=== PATIENT | female | born 1950 | race Caucasian/White ===

== ENCOUNTER 2018-04-12 21:41 | Inpatient (IN) ==
[2018-04-13] MEDS: *HR* OxyCODONE Immed Rel 5 MG TABLET PO PRN ×3 (06:37→18:01)
[2018-04-13] MEDS ORDERED: NON-FORMULARY MEDICATION 1 EACH EACH PO SCH (09:00)
[2018-04-13] MEDS: Insulin DETEMIR 100 UNIT/ML X5UNITS SQ SCH ×2 (09:17→21:01)
[2018-04-13] MEDS: XYZAL 5 MG PO SCH (09:17)
--- NOTE | 2018-04-13 17:06 | Internal Med History&Physical ---
Date of Encounter: 04/13/18 Time of Encounter: 16:20 Assessment and Plan (1) Syncope Current visit: No Status: Acute Medications were adjusted at [facility]. Will continue to monitor. Qualifiers: Syncope type: vasovagal syncope Qualified Code(s): R55 - Syncope and collapse (2) Hematuria Current visit: Yes Status: Acute UA of 04/08/2018 reviewed. There were many squamous epithelial cells suggesting contaminated specimen. Will recheck in a.m. Qualifiers: Hematuria type: unspecified type Qualified Code(s): R31.9 - Hematuria, unspecified (3) Thrombocytopenia Current visit: Yes Status: Acute Present on most labs since 2013. Possibly secondary to cirrhosis (4) Hypertension Current visit: No Status: Chronic Continue Lopressor and monitor blood pressure. Qualifiers: Hypertension type: essential hypertension Qualified Code(s): I10 - Essential (primary) hypertension (5) DMII (diabetes mellitus, type 2) Current visit: No Status: Acute Hemoglobin A1c was 13.1% on 01/10/2018. We will recheck in a.m. Continue Levemir and do Accu-Cheks with SSI. Qualifiers: Diabetes mellitus terminal clerk insulin use: unspecified terminal clerk insulin use status Diabetes mellitus complication status: without complication Qualified Code(s): E11.9 - Type 2 diabetes mellitus without complications (6) Weakness Current visit: Yes Status: Acute Continue PT and OT intervention. Internal Medicine - H&P: HPI Chief complaint: Syncope Admitted From: Hospital to Hospital Transfer Plans for Post Hospital Care: Home History of present illness: Ms. Bowles is a 67 year old right-handed female who was transferred to [facility] swing bed after a April 08 [facility] stay for syncope. She was felt to have orthostatic hypotension. Medications were adjusted. She was admitted to [facility] swing bed for ongoing care needs and rehabilitation prior to returning to home environment. She seems to be a generally reliable historian. She states she has had approximately 6 syncopal episodes in the last 6 months. She denies specific workup being done. Her neurologic history is pertinent for CVA 2013 leaving her with slight left sided weakness and slight speech impairment. Head CT does not show associated lesion. She has seen Dr. Sanchez (neurologist) and was given Aricept for possible dementia. She had GI side effects and the Aricept was discontinued. She denies seizures. Past Med Surg Social Fam HX - Past Medical History Medical history: no medical history, cancer, COPD, CVA, DVT, diabetes, hypertension Additional medical history: recurrent UTI's Psychiatric history: depression - Past Surgical History Surgical History: appendectomy, breast surgery, hysterectomy, other Additional surgical history: left partial mastectomy - Social History Smoking Status: Never smoker Smokeless Tobacco Status: No Alcohol use: none Drug use: none Internal Medicine - H&P: Meds Albuterol Sulfate [Proair Hfa] 2 puff IH Q4H PRN 04/08/18 [History] Amitriptyline HCl 100 mg PO HS 04/08/18 [History] Insulin Glargine,Hum.rec.anlog [Basaglar Kwikpen U-100] 50 unit SQ BID 04/08/18 [History] OxyCODONE Immed Rel [Roxicodone 10 MG] 10 mg PO Q4HR 04/08/18 [History] Xyzal 5 mg PO DAILY 04/08/18 [History] Metoprolol [Lopressor] 12.5 mg PO BID tablet 04/12/18 [Rx] 3 Allergy/AdvReac Type Severity Reaction Status Date / Time codeine Allergy Itching Verified 04/13/16 15:52 Penicillins [PCN] Allergy Hives Verified 04/13/16 15:52 IVP dye Allergy Itching Uncoded 04/13/16 15:52 All Systems PM: A 10-system review of systems was performed and is negative for pertinent findings except as documented above in the HPI. Review of systems: Gen.: She states her weight has decreased approximately 60 pounds in the past 18 months. This is not verified on review of past records which shows weight of 77 kg on 06/30/2015 and weight of 76.839 kg today. Cardiovascular: She has history of hypertension. She had DVT/pulmonary emboli approximately 2012 and was on Xarelto for approximately 2 years. The etiology of the DVT/PE was not determined and she has had no recurrence. She denies OK heart failure or chest pain on exertion. Respiratory: She smoked for approximately 3 months in early adulthood. She reports being diagnosed with COPD and using oxygen at home. She has a diagnosis of asthma. GI: She has a diagnosis of cirrhosis attributed to uncontrolled diabetes. She denies alcohol use. She had a sub-5 mm hepatic lesion seen on abdominal CT during her recent [facility] stay. She denies disorders of her gallbladder or exocrine pancreas. : She reports visible hematuria present for approximate 6 months. She has not reported this to her PCP and no workup has been done. She has had UTIs in the past. Neurologic: As per history of present illness Endocrine: She was diagnosed with DM 2 approximately 1990. She has hyperlipidemia but no known thyroid disease Hematology/oncology: She reports ovarian cancer 2005 was treated with curative TIFFANY/BSO. She had invasive ductal adenocarcinoma grade 1 found on breast biopsy 03/25/2014. She was given neoadjuvant chemotherapy. 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 No additional chemotherapy was given since size was less than 5 cm. She has not had further mammograms or oncology follow-up since then. Psychiatric: She has had depression the past. She is on amitriptyline. She denies other mental health diagnoses [place] skeletal: She has DJD but no known gout or other bone joint or muscle disorders. - Constitutional Vitals: Temp Pulse Resp BP Pulse Ox 98.1 F 69 16 144/83 97 04/13/18 06:24 04/13/18 06:24 04/13/18 06:24 04/13/18 06:24 04/13/18 06:24 Exam: Gen.: She is a well-developed well-nourished female resting comfortably in bed who appears in no severe distress HEENT: Head is atraumatic. There is slight flattening of the left nasolabial fold compared to the right. Eyes: EOMI. There is no scleral icterus. Mouth: Mucosa is moist. Neck: Supple and nontender. There is no thyromegaly or adenopathy noted. Heart: Regular without murmurs gallops or ectopics Lungs: No wheezes or crackles are heard. Abdomen: Soft and nontender. No masses or guarding are noted. Extremities: There is no cyanosis edema or clubbing noted. Dorsalis pedis and posterior tibial pulses are trace to 1+ palpable bilaterally. Neurologic: Mental status: She is talkative and seems to be a reliable historian. Cranial nerves: Smile is symmetric. Forehead wrinkles bilaterally. Tongue protrudes midline. EOMI. Motor: There is no pronator drift. Cerebellar: Finger to nose is intact bilaterally. Skin: Warm and dry
[2018-04-13] MEDS: Ondansetron ODT 4 MG TAB.RAPDIS SL PRN (20:31)
[2018-04-13] MEDS ORDERED: Insulin DETEMIR 100 UNIT/ML per UNIT SQ ONE (20:56)
[2018-04-13] MEDS ORDERED: *HR* Promethazine 25 MG/ML VIAL IVP PRN (21:09)
[2018-04-14 07:44] LABS: Bilirubin,Urine Negative (Negative); Blood,Urine Moderate (Negative); Clarity,Urine Cloudy (Clear); Color,Urine Yellow (Yellow); Glucose,Urine (UA) 100 mg/dL (Normal); Ketones,Urine Negative (Negative); Leukocyte Esterase,Urine Large (Negative); Nitrite,Urine Negative (Negative); Protein,Urine 30 mg/dL (Neg-Trace); Specific Gravity,Urine 1.015 (1.010-1.025); Urobilinogen,Urine Normal (Normal)
[2018-04-14] MEDS: *HR* OxyCODONE Immed Rel 5 MG TABLET PO PRN ×3 (07:54→17:39)
[2018-04-14] MEDS: Ondansetron ODT 4 MG TAB.RAPDIS SL PRN ×2 (07:55→17:39)
[2018-04-14 09:01] LABS: Squamous Epithelial Cell,Urine Few per lpf (None-Few); WBC,Urine 50-100 per hpf (0-3); Yeast,Urine Moderate per hpf (None Seen)
[2018-04-14 09:02] LABS: Bacteria,Urine Few per hpf (None-Few)
[2018-04-14 10:08] LABS: Estimated Average Glucose 329 mg/dl; Hemoglobin A1C 13.1 %
--- NOTE | 2018-04-14 10:11 | Internal Med Progress Note ---
Date of Encounter: 04/14/18 Time of Encounter: 10:00 - Assessment and plan (1) Syncope Current Visit: No Status: Acute Assessment and plan: April 14. Will check orthostatic vital signs in a.m. She reports sensation of lightheadedness on standing. Qualifiers: Syncope type: vasovagal syncope Qualified Code(s): R55 - Syncope and collapse (2) Hematuria Current Visit: Yes Status: Acute Assessment and plan: April 14. Suspect UTI. Abdominal/pelvic CT 04/08/2018 showed no significant pathology of kidneys. Will start Septra DS empirically while awaiting urine culture report. Qualifiers: Hematuria type: unspecified type Qualified Code(s): R31.9 - Hematuria, unspecified (3) Thrombocytopenia Current Visit: Yes Status: Acute Assessment and plan: April 14. Continue to monitor. (4) Hypertension Current Visit: No Status: Chronic Assessment and plan: April 14. Continue Lopressor and monitor blood pressure. Qualifiers: Hypertension type: essential hypertension Qualified Code(s): I10 - Essential (primary) hypertension (5) DMII (diabetes mellitus, type 2) Current Visit: No Status: Acute Assessment and plan: April 14. Hemoglobin A1c pending. Continue Levemir and Accu-Cheks with SSI. Qualifiers: Diabetes mellitus fpc insulin use: unspecified fpc insulin use status Diabetes mellitus complication status: without complication Qualified Code(s): E11.9 - Type 2 diabetes mellitus without complications (6) Weakness Current Visit: Yes Status: Acute Assessment and plan: April 14. Continue PT and OT intervention. - Subjective Interval history: April 14. She has no new complaints. She had nausea and vomiting last evening but it has resolved. - Constitutional Vitals: Temp Pulse Resp BP Pulse Ox 98.3 F 70 16 115/59 90 04/14/18 06:22 04/14/18 06:22 04/14/18 06:22 04/14/18 06:22 04/14/18 06:22 Exam: She is sitting in a chair at bedside resting comfortably. Her affect is bright and cheerful. I reviewed her medications and lab results. Internal Medicine: Result - Labs Labs: Urine 04/13/18 Range/Units 07:30 Urine Color Yellow (Yellow) Urine Clarity Cloudy A (Clear) Urine pH 6.0 (5.0-8.0) pH Units Ur Specific [place] 1.015 (1.010-1.025) Urine Protein 30 H (Neg-Trace) mg/dL Urine Glucose (UA) 100 H (Normal) mg/dL Consult Discharge Plan - Plan Referrals: Jarod Frederick MD [Primary Care Provider] - 1 week
[2018-04-14] MEDS: XYZAL 5 MG PO SCH (11:07)
[2018-04-14] MEDS: Sulfamethoxazole/Trimeth DS 1 EACH TABLET PO SCH ×2 (11:30→20:31)
[2018-04-14] MEDS: Insulin DETEMIR 100 UNIT/ML X5UNITS SQ SCH ×2 (11:31→20:37)
[2018-04-14] MEDS: *HR* Metformin 500 MG TABLET PO SCH (17:39)
[2018-04-14] MEDS: Lactobacillus 1 EACH CAP.SPRINK PO SCH (20:31)
[2018-04-15] MEDS: *HR* Metformin 500 MG TABLET PO SCH (08:29)
[2018-04-15] MEDS: Lactobacillus 1 EACH CAP.SPRINK PO SCH (08:29)
[2018-04-15] MEDS: *HR* OxyCODONE Immed Rel 5 MG TABLET PO PRN (08:29)
[2018-04-15] MEDS: Ondansetron ODT 4 MG TAB.RAPDIS SL PRN (08:29)
[2018-04-15] MEDS: Sulfamethoxazole/Trimeth DS 1 EACH TABLET PO SCH (08:29)
[2018-04-15] MEDS: XYZAL 5 MG PO SCH (08:40)
[2018-04-15] MEDS: Insulin DETEMIR 100 UNIT/ML X5UNITS SQ SCH (08:40)
[2018-04-15] MEDS ORDERED: XYZAL 5 MG PO SCH (09:15)
[2018-04-15 11:32] VITALS: BP 142/76
--- NOTE | 2018-04-15 12:42 | Discharge Summary ---
Orders not resulted at time of discharge: Pending orders 04/13/18 07:30 Culture,Urine [RM] Routine Date of Encounter: 04/15/18 Time of Encounter: 12:30 - Discharge Diagnosis (1) Syncope Priority: Primary Status: Acute Qualifiers: Syncope type: vasovagal syncope Qualified Code(s): R55 - Syncope and collapse (2) Hematuria Priority: Secondary Status: Acute Qualifiers: Hematuria type: unspecified type Qualified Code(s): R31.9 - Hematuria, unspecified (3) Thrombocytopenia Priority: Secondary Status: Chronic (4) Hypertension Priority: Secondary Status: Chronic Qualifiers: Hypertension type: essential hypertension Qualified Code(s): I10 - Essential (primary) hypertension (5) DMII (diabetes mellitus, type 2) Priority: Secondary Status: Chronic Qualifiers: Diabetes mellitus chcf insulin use: unspecified chcf insulin use status Diabetes mellitus complication status: without complication Qualified Code(s): E11.9 - Type 2 diabetes mellitus without complications (6) Weakness Priority: Secondary Status: Acute Hospital course: Ms. Bowles is a 67 year old right-handed female who was transferred to [facility] swing bed after a April 08 [facility] stay for syncope. She was felt to have orthostatic hypotension. Medications were adjusted. She was admitted to [facility] swing bed for ongoing care needs and rehabilitation prior to returning to home environment. Initial orders were written by the discharging physicians at [facility]. I saw her on April 13 and performed the swing bed history and physical. She had no further syncopal or near syncopal episodes. Orthostatic vital signs done on day of discharge showed blood pressure dropping from 142/76 lying to 108/62 standing. Metoprolol dose will be changed to Toprol-XL 12.5 mg daily. Urine culture was ordered but apparently not collected. She was started on Septra DS empirically and this will be continued with lactobacillus for 3 additional days at discharge. Hemoglobin A1c returned elevated at 13.1%. Levemir dose will be increased to 60 units twice a day. She will continue NovoLog sliding scale coverage at home. She had physical therapy and occupational therapy evaluation with ongoing interventions. She progressed well and on April 15 stated she wished to be discharged home. She will follow with her PCP Dr. Frederick within 1 week. Home health services will be ordered. - Time Spent with Patient Total time spent providing and/or coordinating discharge services: - Discharge Medications Prescriptions: Lactobacillus [Culturelle] 1 each PO BID #6 cap.sprink Metoprolol XL (24 HR) Succ [Toprol Xl] 12.5 mg PO DAILY #15 tab.er.24h Sulfamethoxazole/Trimeth DS [Bactrim Ds] 1 each PO BID #6 tablet Home Medications: Albuterol Sulfate [Proair Hfa] 2 puff IH Q4H PRN 04/08/18 [History] Amitriptyline HCl 100 mg PO HS 04/08/18 [History] OxyCODONE Immed Rel [Roxicodone 10 MG] 10 mg PO Q4HR 04/08/18 [History] Xyzal 5 mg PO DAILY 04/08/18 [History] Insulin Glargine,Hum.rec.anlog [Basaglar Kwikpen U-100] 60 unit SQ BID #0 [Rx] Lactobacillus [Culturelle] 1 each PO BID #6 cap.sprink 04/15/18 [Rx] Metoprolol XL (24 HR) Succ [Toprol Xl] 12.5 mg PO DAILY #15 tab.er.24h 04/15/18 [Rx] Sulfamethoxazole/Trimeth DS [Bactrim Ds] 1 each PO BID #6 tablet 04/15/18 [Rx] Allergies/Adverse Reactions: 3 Allergy/AdvReac Type Severity Reaction Status Date / Time codeine Allergy Itching Verified 04/13/16 15:52 Penicillins [PCN] Allergy Hives Verified 04/13/16 15:52 IVP dye Allergy Itching Uncoded 04/13/16 15:52 Date of admission: 04/12/18 21:50 Primary care physician: Jarod Frederick MD Consults: 04/12/18 23:01 Consult to Occupational Therapy [CONS] Routine Comment: To evaluate, develop, and implement POC Reason for Consult: To evaluate, develop, and implement POC Does patient have active BEDREST order?: No Is patient medically & hemodynamically stable?: Yes Patient assessed for mobility or mobilized this visit?: No Consult to Physical Therapy [CONS] Routine Comment: evaluate, develop, and implement POC Reason for Consult: To evaluate, develop and implement POC. Does patient have active BEDREST order?: No Is patient medically & hemodynamically stable?: Yes Patient assessed for mobility or mobilized this visit?: No Consult to [employer]ry [employer] [CONS] Routine Reason for SW Consult: discharge planning - Constitutional Vitals: Temp Pulse Resp BP Pulse Ox 98.1 F 81 16 142/76 95 04/15/18 06:00 04/15/18 09:00 04/15/18 06:00 04/15/18 09:00 04/15/18 06:00 - Patient Status Disposition: Home Health Service Functional capacity at discharge: uses cane/walker - Discharge Instructions Follow Up With: Jarod Frederick MD [Primary Care Provider] - 1 week - Diet and Activity Activity: as per physical therapy Diet: diabetic diet
--- NOTE | 2018-04-15 12:47 | Physician Discharge Referral ---
Home Health/Hosp Referral Info Transfer to: Home Health Attending Provider: Dev Provider in Charge Post Discharge: PCP Mona) - Diagnosis (1) Syncope Priority: Primary Status: Acute (2) Hematuria Priority: Secondary Status: Acute (3) Thrombocytopenia Priority: Secondary Status: Chronic (4) Hypertension Priority: Secondary Status: Chronic (5) DMII (diabetes mellitus, type 2) Priority: Secondary Status: Chronic (6) Weakness Priority: Secondary Status: Acute - Respiratory Orders Smoking Cessation: Smoking cessation has been advised. For more information, call the [place] Tobacco Quit Line at 5-675-RZFK-NOW. - Diet/Nutrition Diet/Nutrition Orders: No Concentrated Sweets - Activity Activity Orders: Walker - Services Needed Following services are medically necessary services: Nursing, Home Health Aide, Physical Therapy, Occupational Therapy - Transfer Medications Prescriptions: Lactobacillus [Culturelle] 1 each PO BID #6 cap.sprink Metoprolol XL (24 HR) Succ [Toprol Xl] 12.5 mg PO DAILY #15 tab.er.24h Sulfamethoxazole/Trimeth DS [Bactrim Ds] 1 each PO BID #6 tablet Home Medications: Albuterol Sulfate [Proair Hfa] 2 puff IH Q4H PRN 04/08/18 [History] Amitriptyline HCl 100 mg PO HS 04/08/18 [History] OxyCODONE Immed Rel [Roxicodone 10 MG] 10 mg PO Q4HR 04/08/18 [History] Xyzal 5 mg PO DAILY 04/08/18 [History] Insulin Glargine,Hum.rec.anlog [Basaglar Kwikpen U-100] 60 unit SQ BID #0 [Rx] Lactobacillus [Culturelle] 1 each PO BID #6 cap.sprink 04/15/18 [Rx] Metoprolol XL (24 HR) Succ [Toprol Xl] 12.5 mg PO DAILY #15 tab.er.24h 04/15/18 [Rx] Sulfamethoxazole/Trimeth DS [Bactrim Ds] 1 each PO BID #6 tablet 04/15/18 [Rx] Allergies/Adverse Reactions: 3 Allergy/AdvReac Type Severity Reaction Status Date / Time codeine Allergy Itching Verified 04/13/16 15:52 Penicillins [PCN] Allergy Hives Verified 04/13/16 15:52 IVP dye Allergy Itching Uncoded 04/13/16 15:52 Certification: Further, I certify that my clinical findings support that this patient is homebound (i.e. absences from home require considerable and taxing effort and are for medical reasons or mosque services or infrequently or short duration when for other reasons) because: Homebound Reason: Leaving home requires considerable and taxing effort due to condition (Debility, orthostatic hypotension, UTI.) Attestation: My signature below is to certify that this patient is under my care and that I, or nurse practitioner, or a physician's sociology research assistant working with me, has a face-to -face encounter with this patient.
[2018-04-16] MEDS ORDERED: XYZAL 5 MG PO SCH (09:00)
== END 2018-04-15 14:25 | disposition home health service (06) | DRG 945 ==
LOC: INPPIK 21:50
PROVIDERS: ADMIT Internal Medicine; ATTEND Internal Medicine

== ENCOUNTER 2020-01-06 16:07 | Inpatient (IN) ==
[2020-01-06] MEDS ORDERED: Dextrose Gel 15 GM/37.5 ML TUBE PO PRN ×2 (19:28)
[2020-01-06] MEDS ORDERED: D5% in Water 1,000 ML IVC PRN (19:28)
[2020-01-06] MEDS ORDERED: *HR* Dextrose 50 % in Water (Vial) 50 ML VIAL IVP PRN (19:28)
[2020-01-06] MEDS ORDERED: CYANOCOBALAMIN 1000 MG IM SCH (19:30)
[2020-01-06] MEDS ORDERED: Ertapenem 1,000 MG in 0.9 % Sodium Chloride Mini Bag 100 ML IVPB SCH (20:00)
[2020-01-06] MEDS ORDERED: 0.9 % Sodium Chloride 1,000 ML IVC SCH (20:15)
[2020-01-06] MEDS ORDERED: Insulin DETEMIR 100 UNIT/ML per UNIT SQ ONE (21:00)
[2020-01-06 21:18] LABS: Basophils % 0.4 %; Eosinophils # 0.1 K/mcL (0.0-0.6); Eosinophils % 1.8 %; Hemoglobin 10.1 g/dL (11.5-15.4); Immature Granulocytes % 0.5 % (0-4); Lymphocytes # 1.2 K/mcL (0.6-4.6); Lymphocytes % 21.6 %; Mean Corpuscular HGB Conc 31.6 g/dL (31.6-35.5); Mean Corpuscular Hemoglobin 29.4 pg (28.0-33.3); Mean Corpuscular Volume 93.3 fL (83.0-100.0); Mean Platelet Volume 10.1 fL (9.4-12.4); Monocytes # 0.3 K/mcL (0.0-1.3); Monocytes % 5.7 %; Neutrophils # 3.8 K/mcL (1.6-8.9); Platelet Count 178 K/mcL (140-400); Red Blood Count 3.43 M/mcL (3.82-4.97); Red Cell Distribution Width 15.1 % (11.5-14.5); White Blood Count 5.5 K/mcL (4.3-11.1)
[2020-01-06 21:30] LABS: BUN/Creatinine Ratio 25 (6-26); Blood Urea Nitrogen 14 mg/dL (8-23); Calcium 8.9 mg/dL (8.6-10.3); Carbon Dioxide 27 mEq/L (23-29); Chloride 101 mEq/L (98-107); Glucose 265 mg/dL (70-105); Osmolality,Calculated 296 (280-300); Potassium 4.4 mEq/L (3.5-5.1); Sodium 138 mEq/L (136-145); eGFR For African Americans > 60 (> 60); eGFR For Non-African Americans > 60 (> 60)
[2020-01-06 21:44] LABS: Prealbumin 12.2 mg/dL (17.0-34.0)
[2020-01-06] MEDS: *HR* OxyCODONE Immed Rel 5 MG TABLET PO PRN (23:14)
[2020-01-07] MEDS: Insulin LISPRO 300 UNITS/3 ML VIAL SQ SCH ×5 (08:47→19:14)
[2020-01-07] MEDS: Insulin DETEMIR 100 UNIT/ML X5UNITS SQ SCH ×2 (08:47→21:08)
[2020-01-07] MEDS: Loratadine 10 MG TABLET PO SCH (08:48)
[2020-01-07] MEDS: Metoprolol XL (24 HR) Succ 25 MG TAB.ER.24H PO SCH (08:48)
[2020-01-07] MEDS: amLODIPine 5 MG TABLET PO SCH (08:48)
[2020-01-07] MEDS: Fluticasone Propionate Nasal 50 MCG/SPRAY BOTTLE NS SCH (16:31)
[2020-01-07] MEDS: *HR* OxyCODONE Immed Rel 5 MG TABLET PO PRN (16:32)
[2020-01-08] MEDS: Insulin DETEMIR 100 UNIT/ML X5UNITS SQ SCH ×2 (08:39→20:13)
[2020-01-08] MEDS: amLODIPine 5 MG TABLET PO SCH (08:39)
[2020-01-08] MEDS: Fluticasone Propionate Nasal 50 MCG/SPRAY BOTTLE NS SCH (08:39)
[2020-01-08] MEDS: Loratadine 10 MG TABLET PO SCH (08:39)
[2020-01-08] MEDS: Metoprolol XL (24 HR) Succ 25 MG TAB.ER.24H PO SCH (08:40)
[2020-01-08] MEDS: Fosfomycin Tromethamine 3 GM Packet PO SCH (08:52)
[2020-01-08] MEDS: *HR* OxyCODONE Immed Rel 5 MG TABLET PO PRN ×2 (08:52→20:24)
[2020-01-08 09:06] LABS: Bilirubin,Urine Negative (Negative); Blood,Urine Trace-lysed (Negative); Clarity,Urine Slightly Cloudy (Clear); Color,Urine Yellow (Yellow); Glucose,Urine (UA) Normal (Normal); Ketones,Urine Negative (Negative); Leukocyte Esterase,Urine Large (Negative); Nitrite,Urine Negative (Negative); Protein,Urine Negative (Neg-Trace); Urobilinogen,Urine Normal (Normal)
[2020-01-08 09:14] LABS: Bacteria,Urine Many per hpf (None-Few); Mucus,Urine Many per lpf (Few); Squamous Epithelial Cell,Urine Few per lpf (None-Few); WBC,Urine TNTC per hpf (0-3)
[2020-01-08 09:15] LABS: Transitional Epi Cells,Urine Few per hpf (None-Few)
[2020-01-08] MEDS: Insulin LISPRO 300 UNITS/3 ML VIAL SQ SCH ×3 (11:39→22:13)
[2020-01-09] MEDS: Metoprolol XL (24 HR) Succ 25 MG TAB.ER.24H PO SCH (09:05)
[2020-01-09] MEDS: amLODIPine 5 MG TABLET PO SCH (09:05)
[2020-01-09] MEDS: Loratadine 10 MG TABLET PO SCH (09:05)
[2020-01-09] MEDS: Fluticasone Propionate Nasal 50 MCG/SPRAY BOTTLE NS SCH (09:06)
[2020-01-09] MEDS: Insulin LISPRO 300 UNITS/3 ML VIAL SQ SCH ×4 (09:06→19:26)
[2020-01-09] MEDS: Insulin DETEMIR 100 UNIT/ML X5UNITS SQ SCH ×2 (09:06→20:11)
[2020-01-09] MEDS: *HR* OxyCODONE Immed Rel 5 MG TABLET PO PRN (16:25)
[2020-01-10 05:35] LABS: Hematocrit 31.7 % (35.3-44.9); Hemoglobin 9.9 g/dL (11.5-15.4); Mean Corpuscular HGB Conc 31.2 g/dL (31.6-35.5); Mean Corpuscular Hemoglobin 28.9 pg (28.0-33.3); Mean Corpuscular Volume 92.7 fL (83.0-100.0); Mean Platelet Volume 10.1 fL (9.4-12.4); Platelet Count 177 K/mcL (140-400); Red Blood Count 3.42 M/mcL (3.82-4.97); Red Cell Distribution Width 15.2 % (11.5-14.5); White Blood Count 4.6 K/mcL (4.3-11.1)
[2020-01-10 05:59] LABS: BUN/Creatinine Ratio 24 (6-26); Blood Urea Nitrogen 13 mg/dL (8-23); Calcium 9.1 mg/dL (8.6-10.3); Carbon Dioxide 33 mEq/L (23-29); Chloride 102 mEq/L (98-107); Glucose 70 mg/dL (70-105); Osmolality,Calculated 289 (280-300); Potassium 3.9 mEq/L (3.5-5.1); Sodium 140 mEq/L (136-145); eGFR For African Americans > 60 (> 60); eGFR For Non-African Americans > 60 (> 60)
[2020-01-10] MEDS: Insulin LISPRO 300 UNITS/3 ML VIAL SQ SCH ×3 (08:03→17:26)
[2020-01-10] MEDS: amLODIPine 5 MG TABLET PO SCH (09:12)
[2020-01-10] MEDS: Loratadine 10 MG TABLET PO SCH (09:12)
[2020-01-10] MEDS: Insulin DETEMIR 100 UNIT/ML X5UNITS SQ SCH ×2 (09:18→19:24)
[2020-01-10] MEDS: Fluticasone Propionate Nasal 50 MCG/SPRAY BOTTLE NS SCH (09:18)
[2020-01-10] MEDS: *HR* OxyCODONE Immed Rel 5 MG TABLET PO PRN ×2 (09:18→19:24)
[2020-01-10] MEDS: Metoprolol XL (24 HR) Succ 25 MG TAB.ER.24H PO SCH (09:19)
[2020-01-10] MEDS: Fosfomycin Tromethamine 3 GM Packet PO SCH (09:22)
[2020-01-10] MEDS: Piperacillin/Tazobactam 3.375 GM in 0.9 % Sodium Chloride Mini Bag 100 ML IVPB SCH ×2 (12:12→19:20)
[2020-01-11] MEDS: Piperacillin/Tazobactam 3.375 GM in 0.9 % Sodium Chloride Mini Bag 100 ML IVPB SCH ×3 (04:14→19:56)
[2020-01-11] MEDS: Insulin LISPRO 300 UNITS/3 ML VIAL SQ SCH ×3 (08:23→17:06)
[2020-01-11] MEDS: Insulin DETEMIR 100 UNIT/ML X5UNITS SQ SCH ×2 (08:43→20:04)
[2020-01-11] MEDS: Loratadine 10 MG TABLET PO SCH (09:27)
[2020-01-11] MEDS: Metoprolol XL (24 HR) Succ 25 MG TAB.ER.24H PO SCH (09:29)
[2020-01-11] MEDS: amLODIPine 5 MG TABLET PO SCH (09:29)
[2020-01-11] MEDS: Fluticasone Propionate Nasal 50 MCG/SPRAY BOTTLE NS SCH (09:38)
[2020-01-11] MEDS: *HR* OxyCODONE Immed Rel 5 MG TABLET PO PRN ×2 (09:38→19:56)
[2020-01-12] MEDS: Piperacillin/Tazobactam 3.375 GM in 0.9 % Sodium Chloride Mini Bag 100 ML IVPB SCH (04:54)
[2020-01-12] MEDS: Insulin LISPRO 300 UNITS/3 ML VIAL SQ SCH ×3 (08:37→16:53)
[2020-01-12] MEDS: Insulin DETEMIR 100 UNIT/ML X5UNITS SQ SCH ×2 (08:37→20:57)
[2020-01-12] MEDS: Fluticasone Propionate Nasal 50 MCG/SPRAY BOTTLE NS SCH (08:37)
[2020-01-12] MEDS: amLODIPine 5 MG TABLET PO SCH (08:38)
[2020-01-12] MEDS: Loratadine 10 MG TABLET PO SCH (08:38)
[2020-01-12] MEDS: Metoprolol XL (24 HR) Succ 25 MG TAB.ER.24H PO SCH (08:38)
[2020-01-12] MEDS ORDERED: Fosfomycin Tromethamine 3 GM Packet PO SCH (09:00)
[2020-01-12] MEDS: *HR* OxyCODONE Immed Rel 5 MG TABLET PO PRN (21:03)
[2020-01-13 05:35] LABS: Hematocrit 36.6 % (35.3-44.9); Hemoglobin 11.4 g/dL (11.5-15.4); Mean Corpuscular HGB Conc 31.1 g/dL (31.6-35.5); Mean Corpuscular Hemoglobin 29.2 pg (28.0-33.3); Mean Corpuscular Volume 93.8 fL (83.0-100.0); Mean Platelet Volume 10.2 fL (9.4-12.4); Platelet Count 182 K/mcL (140-400); Red Cell Distribution Width 15.3 % (11.5-14.5); White Blood Count 6.7 K/mcL (4.3-11.1)
[2020-01-13 05:59] LABS: BUN/Creatinine Ratio 20 (6-26); Blood Urea Nitrogen 10 mg/dL (8-23); Calcium 9.3 mg/dL (8.6-10.3); Carbon Dioxide 31 mEq/L (23-29); Chloride 100 mEq/L (98-107); Glucose 171 mg/dL (70-105); Osmolality,Calculated 289 (280-300); Potassium 3.6 mEq/L (3.5-5.1); Sodium 138 mEq/L (136-145); eGFR For African Americans > 60 (> 60); eGFR For Non-African Americans > 60 (> 60)
[2020-01-13 07:03] VITALS: BP 123/61
[2020-01-13] MEDS: Insulin DETEMIR 100 UNIT/ML X5UNITS SQ SCH (09:26)
[2020-01-13] MEDS: Insulin LISPRO 300 UNITS/3 ML VIAL SQ SCH ×2 (09:26→12:12)
[2020-01-13] MEDS: Metoprolol XL (24 HR) Succ 25 MG TAB.ER.24H PO SCH (09:27)
[2020-01-13] MEDS: amLODIPine 5 MG TABLET PO SCH (09:27)
[2020-01-13] MEDS: Loratadine 10 MG TABLET PO SCH (09:27)
[2020-01-13] MEDS: *HR* OxyCODONE Immed Rel 5 MG TABLET PO PRN (09:31)
[2020-01-13] MEDS: Fluticasone Propionate Nasal 50 MCG/SPRAY BOTTLE NS SCH (11:44)
== END 2020-01-13 16:36 | disposition home health service (06) | DRG 690 ==
LOC: INPPIK 18:43
PROVIDERS: ADMIT Family Medicine; ATTEND Family Medicine